=== PATIENT | female | born 2000 | race Caucasian/White ===

== ENCOUNTER 2024-05-24 09:56 | Observation (INO) ==
--- NOTE | 2024-05-07 11:37 | Anesthesiology Consultation ---
Date of Service May 07, 2024 Assessment & Plan (1) Encounter for pre-operative examination: Chart Review Chart Review: Acceptable Risk for Surgery and Patient NOT seen in Pre Admission Testing Uses he/him/his pronouns per surgeon office notes - Check test AM DOS -Infectious Disease screening: Per PAT nursing assessment on 05/07/24. No known infectious disease contacts in past 10 days or current infectious disease symptoms. No recent travel outside the country. History Surgery Operation Date: 05/24/24 07:30 Proposed Procedures p Bilateral Noncancerous Mastectomy, Free Nipple Grafting and Suction Assisted Lipectomy Lateral Chest - Anayeli Escalera MD Height/Weight Height: 5 ft 4 in Weight: 93.894 kg Allergies Allergy/AdvReac Type Severity Reaction Status Date / Time latex Allergy Mild Rash Verified 05/07/24 10:46 Medications Home Medications Medication Instructions Recorded Confirmed Last Taken cholecalciferol (vitamin D3) 50 50 mcg PO DAILY 01/15/24 05/07/24 Unknown mcg (2,000 unit) capsule norethindrone (contraceptive) 0.35 0.35 mg PO DAILY 01/15/24 05/07/24 Unknown mg tablet oxycodone-acetaminophen 5 mg-325 1 tab PO Q4H PRN pain 3 days #18 05/03/24 05/03/24 Unknown mg tablet (Percocet) tabs Testosterone Gel 1 dose EXT DAILY 05/07/24 05/07/24 Unknown cyanocobalamin (vitamin B-12) 500 500 mcg sublingual DAILY 05/07/24 05/07/24 Unknown mcg sublingual tablet Past Medical History Medical History ADHD Autism Depression 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 PCOS (polycystic ovarian syndrome) Past Family History Family History Other Anxiety Asthma Bipolar disorder Diabetes Hypertension No family history of adverse response to anesthesia OCD (obsessive compulsive disorder) Past Surgical History Surgical History History of colonoscopy History of wisdom tooth extraction Social History Smoking Status: Never smoker Do You Dip or Chew Tobacco: No Hx Alcohol Use: Yes alcohol intake frequency: holidays/special occasions only Alcohol Intake Frequency Comment: 2x monthly Hx Substance Use: Yes substance use type: marijuana Last Used Substance Other:: last used>12/2023 *advised by nursing Lab Results Anesthesia Preop Results Results Anesthesia Widget: WBC 8.88 K/ul (4.8-10.8) 05/03/24 Hgb 15.4 g/dl (12.0-16.0) 05/03/24 Hct 46.2 % (37.0-47.0) 05/03/24 Plt 263 K/uL (130-400) 05/03/24 Na 139 mmol/L (136-145) 05/03/24 K 3.9 mmol/L (3.5-5.1) 05/03/24 Cl 105 mmol/L (98-107) 05/03/24 CO2 30 mmol/L (21-32) 05/03/24 BUN 12 mg/dl (6-23) 05/03/24 Creat 1.05 mg/dl (0.6-1.2) 05/03/24 Glucose Level 75 mg/dl (70-99(Fasting)) 05/03/24 PT 10.6 Seconds (9.0-12.0) 05/03/24 INR 1.0 (0.9-1.1) 05/03/24
[~2024-05-24 09:56] MED LIST: DEXAMETHASONE SOD INJ 4 MG/ML VIAL ONE; DexMEDEtomidine HCL IV 100 MCG/ML VIAL IV ONE; GLYCOPYRROLATE 0.2 MG/ML VIAL ONE; LIDOCAINE 2% 2 ML VIAL/AMP(20MG/ML) INFIL ONE; MIDAZOLAM HCL 1 MG/ML 2ML VIAL ONE; ONDANSETRON INJ 2 MG/ML 2 ML VIAL ONE; PROPOFOL IV EMULSION 10 MG/ML 20 ML VIAL IV ONE; ROCURONIUM BROMIDE 10 MG/ML 5 ML VIAL IV ONE; SUGAMMADEX SODIUM 200 MG/2 ML VIAL IV ONE; fentaNYL citrate PF 100 MCG/2 ML VIAL ONE
[2024-05-24] MEDS: LR 15ML/HR IV SCH (10:24)
[2024-05-24] MEDS ORDERED: ATROPINE SULFATE 0.1 MG/ML 10ML SYR IV PRN (11:33)
[2024-05-24] MEDS ORDERED: HYDROmorphone INJ 2 MG/ML SYR/VIAL IV PRN (11:33)
[2024-05-24] MEDS ORDERED: PROMETHAZINE HCL 6.25 MG in SODIUM CHLORIDE 0.9% 50 ML IV PRN (11:33)
[2024-05-24] MEDS ORDERED: ePHEDrine sulfate 50 MG/ML AMP IV PRN (11:33)
[2024-05-24] MEDS: SCOPOLAMINE 1 MG/72 HR TDSY PATCH TD ONE ×2 (11:36)
--- NOTE | 2024-05-24 11:55 | History & Physical Bridge Note ---
Date of Service May 24, 2024 History & Physical Bridge Note I have examined the patient, reviewed the History & Physical and in the interval since the performance of the History & Physical I have noted the following changes of clinical significance: no changes noted
[2024-05-24] MEDS: ceFAZolin 2000MG 2,000 MG/15 ML SYR IV SCH ×2 (12:52→20:39)
[2024-05-24] MEDS: TRANEXAMIC ACID 1,000 MG **IV Intra-op IV SCH (12:52)
[2024-05-24] MEDS ORDERED: fentaNYL citrate PF 100 MCG/2 ML VIAL ONE (13:19)
[2024-05-24] MEDS: LIDOCAINE 1% LOCAL 20 ML VIAL ONE (13:56)
[2024-05-24] MEDS: EPINEPHrine INJ 1 MG/ML AMP ONE (13:56)
[2024-05-24] MEDS: BUPIVACAINE 0.25% PF 30 ML VIAL ONE (13:57)
[2024-05-24] MEDS: LIDOCAINE 1%/EPINEPHRINE 1:100,000 50 ML VIAL ONE (13:57)
[2024-05-24] MEDS: TRANEXAMIC ACID 1,000 MG **IV Pre-op IV SCH (14:56)
[2024-05-24] MEDS ORDERED: PROPOFOL IV EMULSION 10 MG/ML 20 ML VIAL IV ONE ×2 (15:14)
--- NOTE | 2024-05-24 15:25 | Post Operative Brief Note ---
PG Immediate Post Op with CF Date of Surgery May 24, 2024 Pre & Post Diagnosis Operation Date: 05/24/24 11:30 Pre-Op Diagnosis: Gender Affirming Surgery Post-Op Diagnosis: Gender Affirming Surgery I identified the patient and participated in the time-out.: Yes Procedure Operation Date: 05/24/24 11:30 Actual Procedures p Bilateral Non-cancerous Mastectomy, Suction Assisted Lipectomy Lateral Chest(Bilateral) - Anayeli Escalera MD Surgeon Anayeli Escalera MD Health And Wellness Coach Jessica Clayton PA-C Estimated Blood Loss 25 Findings Consistent with Post-Op Diagnosis Specimens Specimen Description: A: Left Breast B: Right Breast Drains Andrew-Marroquin Drain (x2)
--- NOTE | 2024-05-24 15:30 | Operative Report ---
PG Post Operative Report Pre & Post Diagnosis Operation Date: 05/24/24 11:30 Pre-Op Diagnosis: Gender Affirming Surgery Post-Op Diagnosis: Gender Affirming Surgery I identified the patient and participated in the time-out.: Yes Procedure Operation Date: 05/24/24 11:30 Actual Procedures p Bilateral Non-cancerous Mastectomy, Suction Assisted Lipectomy Lateral Chest(Bilateral) - Anayeil Escalera MD Surgeon Anayeli Escalera MD Service Support Representative Jessica Clayton PA-C Estimated Blood Loss 25 Findings Consistent with Post-Op Diagnosis Specimens bilateral breasts to pathology Drains [id number] Anesthesia Type General Complications none Indications 23 year old transgender male desiring gender affirming mastectomy. Declined nipple areolar complex grafting Description of Procedure The risks benefits and alternatives of the procedure were explained to the patient who agreed and signed consent. He opted not to have nipple grafting performed. He were identified and marked in the preoperative holding area. I marked the incisions along the inframammary folds and made the superior incision in an elliptical fashion in order to provide a horizontal scar pattern if possible. He were brought to the operating room and positioned supine, placed under general anesthesia without incident. The surgical site was prepped and draped sterilely. A timeout procedure was performed. I began with the liposuc tion portion of the procedure. Tumescent fluid consisting of lidocaine plain, epinephrine, and lactated Ringer's was infiltrated along the lateral border of the pectoralis major as well as the lateral/axillary breast. 232 cc were infiltrated on the left, 182 cc on the right until there was good tissue turgor. Liposuction to this area was performed using a 3 mm suction cannula until there was improvement in the volume and contour of the axillary breast and fat covering lateral pectoralis. Approximately 200 cc of lipoaspirate were obtained from each side. Endpoints of liposuction were improvement in contour, bloody drainage, uniform pinch, and symmetry.Once I was satisfied with the improvement in contour, I began the left mastectomy by making the inferior incision using 15 blade scalpel, which was just about 1 cm superior to the inframammary fold. Incision was deepened through dermis using electrocautery, and deepened down to the chest wall. I began raising the breast off of underlying pectoralis fascia, confirmed that closure would be possible and confirmed marking of the superior incision, which was made with a 15 blade scalpel and deepened using electrocautery. Superiorly, breast was undermined to the clavicle at the level of the breast capsule and the superior flap was further thinned until it was of uniform thickness, approximately 2 cm in thickness and equal to the thickness of the abdominal subcutaneous tissue.The breast was passed off as specimen. Throughout dissection, hemostasis was achieved using the bovie. I did perform some additional undermining inferiorly along the inframammary fold to facilitate closure and disrupt the inframammary fold. Prior to closure, the wound was irrigated, examined for hemostasis. A 15 Icelandic Tristen drain was placed in the wound bed and brought out through a separate stab incision laterally and sutured into place using a 3-0 nylon suture.Quarter percent Marcaine plain was injected into the wound bed prior to closure. Deep dermis was closed using 2-0 Vicryl interrupted sutures, superficial dermis closed using 2-0 PDO running Quill suture, and subcuticular wound closure was performed using 3-0 Monocryl. An identical procedure was performed on the right side. Dermabond Prineo was applied. Dry dressings and drain sponges were placed. A binder was placed. Procedure was tolerated well. Patient was awakened and transferred to the recovery room in satisfactory condition. Jessica Clayton PA-C was present and scrubbed throughout the procedure, assisting in retraction during dissection, hemostasis and simultaneous wound closure. I attest to the content of the Intraoperative Record and any orders documented therein. Any exceptions are noted below.
[2024-05-24] MEDS: ONDANSETRON INJ 2 MG/ML 2 ML VIAL IV PRN (15:55)
[2024-05-24] MEDS: fentaNYL citrate PF 100 MCG/2 ML VIAL IV PRN (16:05)
[2024-05-24] MEDS: PROMETHAZINE HCL INJ 25 MG/ML 1 ML VIAL ONE (16:07)
[2024-05-24] MEDS: SODIUM CHLORIDE 0.9% 50 ML BAG ONE (16:07)
--- NOTE | 2024-05-24 16:09 | Anesthesiology Progress Note ---
Date of Service May 24, 2024 Anesthesia Post Procedure Vital Signs Vital Signs: Temp Pulse Pulse Resp BP Pulse Ox O2 Del Method 05/24/24 16:00 87 16 124/85 99 Oxymask 05/24/24 15:50 74 12 121/67 100 Oxymask 05/24/24 15:40 80 13 121/61 97 Oxymask 05/24/24 15:31 36.6 C 78 17 111/55 L 96 Oxymask 05/24/24 10:21 36.5 C 76 18 136/95 99 Room Air O2 Flow Rate 05/24/24 16:00 5 05/24/24 15:50 5 05/24/24 15:40 5 05/24/24 15:31 5 05/24/24 10:21 Pain Intensity Bilateral Breast: Pain Intensity: 7 Transfer of Care Handoff Completed per policy Notes Mental Status: alert / awake / arousable Patient Amnestic to Procedure: Yes Nausea / Vomiting: adequately controlled Pain: adequately controlled Airway Patency, RR, SpO2: stable & adequate BP & HR: stable & adequate Hydration State: stable & adequate Anesthetic Complications: no major complications apparent
[2024-05-24] MEDS ORDERED: ACETAMINOPHEN 325 MG TAB PO PRN (16:52)
[2024-05-24] MEDS ORDERED: MoRPHine SULFATE 4 MG/ML 1 ML CARP\\VIAL IV PRN (16:52)
[2024-05-24] MEDS ORDERED: oxyCODONE/ACETAMINOPHEN 5mg/325mg TAB PO PRN (16:52)
[2024-05-24] MEDS ORDERED: diphenhydrAMINE 50 MG/ML VIAL IV PRN (16:52)
[2024-05-24] MEDS ORDERED: diphenhydrAMINE Capsule 25 MG CAP PO PRN (16:52)
[2024-05-24] MEDS ORDERED: ONDANSETRON INJ 2 MG/ML 2 ML VIAL IV PRN (16:52)
[2024-05-24] MEDS ORDERED: MoRPHine SULFATE 2 MG/ML CARP IV PRN (16:52)
[2024-05-24] MEDS ORDERED: LORazepam 0.5 MG TAB PO PRN (16:52)
[2024-05-24] MEDS: CHECK SCOPOLAMINE PATCH PLACEMENT SCH (17:07)
[2024-05-24] MEDS: PROMETHAZINE HCL 12.5 MG in SODIUM CHLORIDE 0.9% 50 ML IV PRN (17:24)
[2024-05-24] MEDS: D5W AND 1/2NSS + 20MEQ KCL 20 MEQ/1,000 ML BAG IV SCH (17:50)
[2024-05-24] MEDS: oxyCODONE/ACETAMINOPHEN 5mg/325mg TAB PO PRN (20:38)
[2024-05-25] MEDS: COUGH DROP (SUGAR FREE) LOZ 24 LOZ/1 BOX BUCCAL ONE (02:02)
[2024-05-25] MEDS: MULTIVITAMIN TAB PO SCH (07:48)
--- NOTE | 2024-05-25 09:27 | Surgery Progress Note ---
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 He is doing well with no new concerns overnight. VSS, drain output between 25-35 cc with no evidence of blood clots in bulbs. Bilateral chest incisions are intact. I reviewed discharge instructions with Dorian. He is aware that he can remove his surgical dressings tomorrow and shower. Drain care was reviewed as well as removal criteria. He was strongly encouraged to walk frequently at home and to use incentive spirometer at home to prevent blood clots to the legs and lungs. He is going to stay in his binder as instructed. His next scheduled appt is his 2 week suture removal. He is aware that his drains may be ready for removal prior to or after his suture removal appt. He is good for discharge to home. All questions answered. Admission and Anticipated Discharge Date Admission Date: May 24, 2024 Subjective Dorian is resting comfortably in bed. He notes that last night went well. He states that PO pain medication is keeping him comfortable. He denies any post-op nausea or vomiting. He has been able to filler picker his post-op pain medication for home. He plans on returning to [place] today after discharge. Review of Systems Constitutional: as per Subjective / HPI; no fever and no chills Respiratory: no chest congestion, no dyspnea, no dyspnea on exertion and no wheezing Cardiovascular: no chest pain, no chest pain at rest, no chest pain with activity, no lightheadedness and no calf pain Gastrointestinal: no abdominal pain, no nausea and no vomiting Physical Exam Physical Exam: On physical exam- bilateral drains are in place (right drain with 35 cc of output since surgery and left drain with 25 cc of output since surgery)- output is serosang. No signs of any blood clots in bulbs. Dressings peeled back to see incisions. Incisions are intact with surgical glue and tape in place. There are no signs of seroma or hematoma formation. No signs of infection. 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
--- NOTE | 2024-05-25 15:31 | Discharge Summary ---
Date of Service May 25, 2024 Admission HPI Per Admitting Provider Please see admission H and P. Admission Exam Per Admitting Provider Please see admission H and P. 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 No signs of any blood clots in bulbs. Dressings peeled back to see incisions. Incisions are intact with surgical glue and tape in place. There are no signs of seroma or hematoma formation. No signs of infection. 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 Drains x 2 were placed bilaterally. There were no intraoperative complications. He was taken to recovery and transferred to med/surg for overnight observation. On POD #1, he was doing very well. He noted some expected soreness. He was tolerating a regular diet and was voiding on his own. On exam, his vital signs were within normal limits, incisions were clean, dry, intact with surgical glue and tape in place. Dorian was discharged to home. Discharge instructions were reviewed. His next scheduled appt is his 2 week suture removal. All questions answered. Total Time Total Time Spent Total Time Spent (In Minutes): 15 Discharge Plan Discharge Items Patient Disposition: Home - Self-Care Reason For Visit: Gender Affirming Surgery Discharge Diagnosis: s/p top surgery Activity: As commented below Non-emergency contact: Surgeon Call non-emergency contact if: you have any medication questions, your pain is not controlled, you have a fever, your wound has increased redness and your wound has increased drainage Follow-up/Referrals: RICK BAKER [Other] Jessica Clayton PA-C [Physician Ballet Soloist] - Diet: Regular Addtl Attending Provider Instructions: ACTIVITY RECOMMENDATIONS: __Normal activities _x_No bending, lifting or straining. Keep arms at shoulder height or below __No driving __Driving allowed when you are off pain medications _x_Walking permitted and encouraged __You should have help at home for ___ days DRESSINGS: __No dressings required _x_Keep dressings dry/in place until first office visit. If you do not come into the office tomorrow, you may remove the tape and gauze bandages, then put the binder immediately back on __Remove dressings ___ and leave dressings off __Apply ice ___ days __Remove dressings and reapply garment __Apply antibiotic ointment (Bacitracin, Neosporin, etc) to wounds 3-4 times/day for 10 days BATHING: _x_Keep dressings dry _x_Sponge bathing permitted away from surgical sites _x_Showering permitted in 48 hours _x_No swimming, hot tubs or soaking in a tub MEDICATIONS: Resume previous medications unless instructed otherwise by your surgeon. _xDo not use aspirin, Motrin, Advil or Ibuprofen as these may promote bleeding. Please use Tylenol. _x_Prescription(s) provided: pain medication was provided at your last office visit OTHER INSTRUCTIONS: _x_Record drain output 2-3 times per day. Drain may be ready for removal when output is 10cc/24 hours. call the office when output has met this criteria, and we will discuss drain removal SPECIAL CARE INSTRUCTIONS: * It is normal to have a mild fever after surgery. If your temperature is higher than 101.5 degrees F, please call the office at [phone]. * Constipation is a typical side effect of pain medication. An [id number] stool softener will help relieve this. * Leaking around surgical drains may occur and should not cause concern. Sometimes these drains become clogged. If this happens, remove the bulb and milk the clot out of the tube, then replace the bulb. * Drainage from wounds after liposuction is normal and should be expected. Garments will become soiled. You should protect furniture and bedding. This drainage should mostly subside within 2-3 days. Leave garments in place unless instructed to remove them. * If you have unusual drainage from a wound or are concerned you have an infection or have any questions or concerns, please call the office at [phone]. FOLLOW UP VISIT: If not already scheduled, please call the office, , when you return home after surgery to schedule an appointment to be seen in _1__ days. Pending Studies at Discharge: Yes Stand-Alone Forms: [facility] [employer], Smoking Cessation Medications and DC Order Prescriptions: Continued cholecalciferol (vitamin D3) 50 mcg (2,000 unit) capsule 50 mcg PO DAILY Hold Instructions: SURGERY oxycodone-acetaminophen [Percocet] 5-325 mg tablet 1 tab PO Q4H PRN (Reason: pain) 3 Days Qty: 18 0RF Rx Instructions: Initial therapy. Pt to start after surger cyanocobalamin (vitamin B-12) 500 mcg Tablet, Sublingual 500 mcg SUBLINGUAL DAILY Testosterone Gel 1 dose EXT DAILY Discontinued norethindrone (contraceptive) 0.35 mg tablet 0.35 mg PO DAILY Hold Instructions: SURGERY Patient Comments: on hold per surgeon Discharge Orders: Discharge Order (Routine); Ordered 05/25/24 Ordered By: Subha Link/Other Patient Handouts: Mastectomy: After Surgery, Mastectomy: Follow-Up Care Admission Data Admit Date/Time: 05/24/24 15:33 Attending Provider: Anayeli Escalera Admit Provider: Anayeli Escalera Primary Care Provider: Rosemary Baker Other Interventions: Discharge Summary Assessment (RN) Last Done: 05/25/24 10:24 Coding Level of Care Code 37601 OBS Care - Discharge Diagnoses 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
== END 2024-05-25 11:34 | disposition home or self-care (01) ==
LOC: 3N 09:56 → ASU 09:56